=== PATIENT | female | born 1965 | race Caucasian/White ===

== ENCOUNTER 2022-03-07 14:16 | Outpatient (RCR) | payer BC, SELFPAY ==
--- NOTE | 2022-03-07 15:21 | PT.OPEX ---
[facility] PT [facility] Outpatient Eval Start: 03/07/22 07:02 Freq: Status: Active Protocol: Document 03/07/22 15:17 LATANYA (Rec: 03/07/22 15:20 CLLeandra [id number]) E-signed By Keke Hopson PT Physical Therapy Outpatient Evaluation Insurance Information Insurance Name Other; See Comments Insurance Information/Comments [employer] [place] - [place] Medical Diagnosis Rt Shoulder pain - possible Rot cuff involvement Treating Diagnosis Rt shoulder pain Subjective Subjective Sade reports having Rt shoulder pain for the past 2 weeks, problem associated with a lot of repetative UE use - not doing anything new to cause injury. My pain started at my biceps and went up into my shoulder. I used ibuprofen and ice. Dr found a spot on my shoulder that caused instant and severe pain. They had me start taking a pain killer twice per day. I couldn't even sleep before. With the medication, pain is reduced by about 70% and now I can sleep . She denies a specific injury . 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 Pain with Rt IR behind back Strength Nancy full shoulder assessment of 5/5, pain with Lt ER and Rt IR Palpation Unable to recreate pain on this date. But she reports physician found site (probable supraspinatus or biceps long head) but she has not had pain with use of medicatioin Posture Elevated shoulders and slight protraction increased lumbar lordosis Assessment Assessment/Impression 56 yo with DX of Rt shoulder pain. She presents with slight nancy shoulder elevation and protraction. She has increased lumbar lordosis. She has good AROM, but end range pain with rotations and functional IR to reach behind back. MMT normal 5/5 but with pain with moderate+ resistance to rotators nancy. She has sagar- scapular weakness at rhomboid and lower trap 4/5. She has palpable tightness at nancy pect major and minor. Trigger point sensetive at nancy UT. She will benefit from continued skilled physical therapy to compile and educate client in proper execution of stretch/ strength HEP, CFFM and use of ice massage. Thank you for this referral Plan of Care Rehabilitation Potential Good Physical Therapy Goals In 4 visits, Sade will be able to: 1. IND execute HEP for cont self management and prevention of symptoms 2. Reduced pain by 50% with cont PLOF with home and work tasks (repetitive UE use as Electrical And Instrument Mechanic) 3. Reduced use of medication for pain control by at least 50% Coordination/Communication With Referral Source Treatment Plan/Direct Interventions Ice/Cold/Vasopneumatic,Joint Mobilization,Manual Therapy, Neuromuscular Re-ed,Self-Care/ Home Management,Therapeutic Exercises Frequency/Duration 1X/Wk for 10 visits Patient Will Be Discharged From Therapy Completion of LTG(s),Skills Plateau,Independent w/HEP, Independently Progressing Evaluation Billing Untimed Code Treatment Minutes 27 Complexity Moderate Certification Information Physician Comment/Change Comment or Changes Physician NPI Number #
== END 2022-05-01 14:35 | disposition home or self-care (01) ==
PROVIDERS: PCP Family Medicine; Visit Provider Family Medicine
DX: M25.511 Pain in right shoulder (principal); Z51.89 Encounter for other specified aftercare
CPT/HCPCS: 97110; 97162